=== PATIENT | female | born 1990 | race Hispanic/Latino ===

== ENCOUNTER 2020-01-17 23:30 | Observation (INO) | payer OTHER ==
[2020-01-18] MEDS ORDERED: ONDANSETRON 4 MG/2 ML VIAL ONE (00:20)
[2020-01-18] MEDS ORDERED: MORPHINE 2 MG/ML SYR ONE (00:20)
[2020-01-18 00:33] LABS: Absolute Lymphocytes (CBC) 1.8 K/uL (0.7-4.9); Basophils % 0.2 % (0-1.3); Hematocrit 43.6 % (36.0-45.0); Lymphocytes % 6.4 % (15.3-44.8); MPV 8.3 fL (7.6-11.3); RBC Red Blood Cell Count 4.76 M/uL (3.86-4.86)
[2020-01-18 00:44] LABS: Albumin 4.3 g/dL (3.4-5.0); Bilirubin Direct 0.1 mg/dL (0-0.2); Bilirubin Total 0.4 mg/dL (0.2-1.0); Potassium 3.1 mmol/L (3.5-5.1); Protein, Total 8.6 g/dL (6.4-8.2)
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
[2020-01-18] MEDS ORDERED: POTASSIUM 25 MEQ EFFERV TAB ONE (02:05)
[2020-01-18] MEDS ORDERED: NA CHLORIDE 0.9% 1,000 ML ONE (02:05)
[2020-01-18] MEDS ORDERED: NS KCL 20MEQ 1,000 ML IV ONE (02:05)
[2020-01-18 02:13] LABS: Blood Morphology Comment NOT SEEN (NOT SEEN); Platelet Estimate ADEQ
[2020-01-18] MEDS ORDERED: D5.45NS W/KCL 20MEQ 1,000 ML IV SCH (04:19)
[2020-01-18] MEDS ORDERED: ACETAMINOPHEN 325 MG TABLET PO PRN (04:19)
[2020-01-18] MEDS ORDERED: MORPHINE 4 MG/ML SYR IV PRN (04:19)
[2020-01-18] MEDS ORDERED: ONDANSETRON 4 MG/2 ML VIAL IV PRN (04:19)
[2020-01-18 04:53] VITALS: BMI 35.6
--- NOTE | 2020-01-18 07:55 | RAD REPORT ---
EXAM DESCRIPTION: Angela Single View01/18/2020 6:38 am CLINICAL HISTORY: Chest pain COMPARISON: January 17 FINDINGS: The lungs appear clear of acute infiltrate. The heart is normal size IMPRESSION: No acute abnormalities displayed
[2020-01-18 08:02] VITALS: TEMP 97.8
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
--- NOTE | 2020-01-18 08:14 | RAD REPORT ---
EXAM DESCRIPTION: Angela Single View01/18/2020 12:25 am CLINICAL HISTORY: Chest pain COMPARISON: none FINDINGS: The lungs appear clear of acute infiltrate. The heart is normal size IMPRESSION: No acute abnormalities displayed
[2020-01-18] MEDS ORDERED: FAMOTIDINE 20 MG/2 ML VIAL IV SCH (09:00)
[2020-01-18 09:48] VITALS: O2SAT 96
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
[2020-01-18 12:06] VITALS: BP 102/61
[2020-01-18 13:28] LABS: BUN Blood Urea Nitrogen 10 mg/dL (7-18); Bicarbonate 21 mmol/L (21-32); Glucose Level 86 mg/dL (74-106); Sodium Level 139 mmol/L (136-145)
[2020-01-18 13:37] LABS: Absolute Lymphocytes (CBC) 2.5 K/uL (0.7-4.9); Basophils % 0.3 % (0-1.3); Hematocrit 37.9 % (36.0-45.0); Lymphocytes % 22.1 % (15.3-44.8); MPV 8.1 fL (7.6-11.3); RBC Red Blood Cell Count 4.08 M/uL (3.86-4.86)
--- NOTE | 2020-01-18 14:28 | P.DS ---
Admission Date: 01/18/20 Discharge Date: 01/18/20 Disposition: ROUTINE DISCHARGE Discharge Condition: GOOD Hospital Course: unremarkable Vital Signs/Physical Exam: Temp Pulse Resp BP Pulse Ox 97.8 F 60 16 102/61 98 01/18/20 12:00 01/18/20 12:00 01/18/20 12:00 01/18/20 12:00 01/18/20 12:00 General: Alert, In no apparent distress, Oriented x3, Cooperative HEENT: Atraumatic, Normocephalic, PERRLA, Mucous membr. moist/pink, EOMI Neck: Supple, No Thyromegaly, Without JVD or thyroid abnormality Respiratory: Clear to auscultation bilaterally, Normal air movement Cardiovascular: No edema, Normal pulses, Normal S1 S2, No rubs, No murmurs Gastrointestinal: Normal bowel sounds, Soft and benign, No tenderness, No rebound, No guarding Musculoskeletal: No clubbing, No swelling, No contractures, No erythema, No tenderness, No warmth Integumentary: No rashes, No breakdown, No tenderness/swelling, No erythema, No warmth, No cyanosis Neurological: Normal speech, Normal strength at 5/5 x4 extr, Normal tone, Sensation intact, Cranial nerves 3-12 intact, Normal reflexes 2+, Normal affect Lymphatics: No axilla or inguinal lymphadenopathy Urinary: Other (no dysuria, no hematuria. ) External genitalia: Deferred Rectal: Deferred Laboratory Data at Discharge: WBC 11.3 K/uL (4.3-10.9) H D 01/18/20 12:45 Hgb 13.0 g/dL (12.0-15.0) 01/18/20 12:45 Hct 37.9 % (36.0-45.0) 01/18/20 12:45 Plt Count 295 K/uL (152-406) D 01/18/20 12:45 Sodium 139 mmol/L (136-145) 01/18/20 12:45 Potassium 4.0 mmol/L (3.5-5.1) 01/18/20 12:45 BUN 10 mg/dL (7-18) 01/18/20 12:45 Creatinine 0.75 mg/dL (0.55-1.3) 01/18/20 12:45 Glucose 86 mg/dL (74-106) 01/18/20 12:45 Total Bilirubin 0.4 mg/dL (0.2-1.0) 01/17/20 23:45 AST 22 U/L (15-37) 01/17/20 23:45 ALT 19 U/L (12-78) 01/17/20 23:45 Alkaline Phosphatase 80 U/L (45-117) 01/17/20 23:45 Lipase 69 U/L (73-393) L 01/17/20 23:45 Imagings Data: ct and xray discussed with pt Home Medications: NK [No Home Meds] 01/18/20 Patient Discharge Instructions: No heavy lifting Diet: [place] Activity: No lifting more than 10 lbs Followup: Tyrone Mirza MD [ACTIVE - CAN ADMIT] - 1 Week
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
--- NOTE | 2020-01-19 14:23 | EKG ---
Test Date: 2020-01-17 Test Time: 23:37:43 Sales Host: SWG MEASUREMENT RESULTS: Intervals: Rate: 95 NC: 128 QRSD: 78 QT: 356 QTc: 447 [place]: P: 49 NC: 128 QRS: 88 T: 60 INTERPRETIVE STATEMENTS: Sinus rhythm with premature ventricular complexes or fusion complexes Otherwise normal ECG No previous ECG available for comparison Electronically Signed On 01-19-20 14:22:40 CDT by Dawit Carrington
== END 2020-01-18 16:53 | disposition home or self-care (01) ==
LOC: ER 23:30 → ERHOLD 01-18 02:46 → 2ND 01-18 03:30
PROVIDERS: ADMIT Surgery; ATTEND Surgery
DX: S16.1XXA Strain of muscle, fascia and tendon at neck level, initial encounter (principal); S29.012A Strain of muscle and tendon of back wall of thorax, initial encounter; S29.011A Strain of muscle and tendon of front wall of thorax, initial encounter; V49.50XA Passenger injured in collision with unspecified motor vehicles in traffic accident, initial encounter; Y92.410 Unspecified street and highway as the place of occurrence of the external cause; E87.6 Hypokalemia; D72.829 Elevated white blood cell count, unspecified; F17.210 Nicotine dependence, cigarettes, uncomplicated
CPT/HCPCS: 96361; 93005; 85025 ×2; 80048 ×2; 36415; 86900; 86850; 86901; 80076; 83690; 70450; 72125; 71260; 74177; 71045 ×2; 72170; 96375; 96374; 99285; Q9967; J2270; J7030; J2405; G0378 ×2